=== PATIENT | female | born 1970 | race Native Hawaiian/Other Pacific Islander ===

== ENCOUNTER 2020-08-13 20:43 | Emergency (ER) | payer OTHER ==
[2020-08-13 22:18] VITALS: BP 148/95
--- NOTE | 2020-08-13 23:23 | XRay Report ---
EXAMINATION: Left rib radiograph series with chest radiograph, 08/13/2020 CLINICAL INFORMATION: Fall. Trauma. COMPARISON: None. FINDINGS: There is no evidence of displaced left rib fracture. The accompanying chest radiograph demonstrates no evidence of acute cardiopulmonary process. IMPRESSION: 1. No evidence of displaced left rib fracture. Signer Name: Chloé Ramirez MD Signed: 08/13/2020 11:18 PM Workstation Name: [id number]
== END 2020-08-14 03:05 | disposition left against medical advice (07) ==
LOC: ED 20:43
DX: R07.81 Pleurodynia (principal); Z53.21 Procedure and treatment not carried out due to patient leaving prior to being seen by health care provider; W18.39XA Other fall on same level, initial encounter; Y93.89 Activity, other specified; Y92.89 Other specified places as the place of occurrence of the external cause; Y99.8 Other external cause status

== ENCOUNTER 2021-08-09 15:46 | Emergency (ER) | payer OTHER ==
[2021-08-09 17:36] VITALS: BP 121/73
== END 2021-08-10 00:30 | disposition left against medical advice (07) ==
LOC: ED 15:46
DX: R42 Dizziness and giddiness (principal); Z53.21 Procedure and treatment not carried out due to patient leaving prior to being seen by health care provider; R11.10 Vomiting, unspecified